=== PATIENT | male | born 1995 | race Caucasian/White ===

== ENCOUNTER 2017-05-05 08:31 | Emergency (ER) | payer SELFPAY ==
[~2017-05-05] VITALS: Ht 167.6 cm; Wt 88.7 kg
[2017-05-05 09:53] LABS: BASOPHIL % 0.3 % (0-2); PLATELET COUNT 310 x10^3mcL (130-400); RED CELL DISTRIBUTION WIDTH 13.3 % (11.5-14.5)
[2017-05-05 10:17] LABS: CALCIUM 9.4 mg/dL (8.5-10.1); CARBON DIOXIDE 28.1 mmol/L (21-32); CHLORIDE SERUM 103 mmol/L (98-107); CREATININE SERUM 0.9 mg/dL (0.7-1.3); GFR1 > 60 mL/min; GLUCOSE SERUM 111 mg/dL (74-106); POTASSIUM SERUM 3.4 mmol/L (3.5-5.1); SODIUM SERUM 138 mmol/L (136-145)
[2017-05-05 10:22] LABS: ALBUMIN 4.4 g/dL (3.4-5.0); ALKALINE PHOSPHATASE 86 U/L (46-116); ALT/SGPT 31 U/L (16-63); AMYLASE 53 U/L (25-115); AST/SGOT 15 U/L (15-37); LIPASE 137 IU/L (73-393)
[2017-05-05 10:27] LABS: AMPHETAMINE QUAL UR NONE DETECTED (NEG <=1000)
[2017-05-05 10:28] LABS: TOTAL PROTEIN, SERUM 8.8 g/dL (6.4-8.2)
[2017-05-05 12:46] VITALS: BP 145/86
== END 2017-05-05 12:46 | disposition home or self-care (01) ==
LOC: ED 08:31
PROVIDERS: Emergency Medicine
DX: R42 Dizziness and giddiness (principal); R19.7 Diarrhea, unspecified
CPT/HCPCS: 83880; J2405; J7030